=== PATIENT | female | born 1995 | race Caucasian/White ===

== ENCOUNTER 2016-05-15 09:58 | Emergency (ER) ==
[2016-05-15 10:14] LABS: URINE SOURCE CLEAN CATCH
[2016-05-15 10:45] LABS: BILIRUBIN URINE NEGATIVE (NEGATIVE); BLOOD URINE NEGATIVE (NEGATIVE); CLARITY SL. CLOUDY (CLEAR); COLOR YELLOW; GLUCOSE URINE NEGATIVE (NEGATIVE); LEUKOCYTES URINE 2+ (NEGATIVE); NITRITE URINE POSITIVE (NEGATIVE); PROTEIN URINE NEGATIVE (NEGATIVE); SP GRAVITY URINE 1.005; URINE MICROSCOPIC NEEDED? YES; UROBILINOGEN URINE NORMAL
[2016-05-15 10:46] LABS: URINE EPITHELIAL CELLS >10 /HPF (<10); URINE RBC <10 /HPF (<10); URINE WBC 20-40 /HPF (<10)
--- NOTE | 2016-05-15 10:51 | PROVIDER DOCUMENTATION ---
HPI-Female /OB/Breast - General Chief Complaint: Female Stated Complaint: POSS PREG/ABD PX Time Seen by Provider: 05/15/16 10:00 Source: reports: patient, family Allergies/Adverse Reactions: Patient Allergies Allergy/AdvReac Type Severity Reaction Status Date / Time No Known Allergies Allergy Verified 03/16/13 14:58 Home Medications: Multivitamins with Iron [Flintstones with Iron] 1 each PO HS 03/16/13 - History of Present Illness-Female /OB Nature of Presenting Problem: Presents to er with cc of abd pain x 1 week. Reports started in the upper abd and is now in lower abd. Pt reports she has had 3 positive test and reports went to [place] [facility] on Thursday and they didn't do an ultrasound. Pt reports health department on Thursday confirmed 10 weeks . Called OB told her come to ER due to steadily hurting. Denies vag bleeding,vaginal discharge,f, c,n,v. Last BM 2-3 days. . Does patient report she is ?: Yes (10 weeks) Location of complaint: reports: LLQ, suprapubic Quality of Pain: reports: aching Severity in ED: reports: moderate Onset/Duration: reports: 1 week ago Timing: reports: still present Vaginal Symptoms: reports: no symptoms Vaginal Bleeding Amount: None Related Symptoms: reports: abdominal pain Leakage of Fluid: none Similar Symptoms Previously?: No Recently seen or treated by another doctor?: Yes Review of Systems - Adult - REVIEW OF SYSTEMS - ADULT Constitutional: denies: chills, fever, fatique Eyes: reports: no symptoms reported Ears, Nose, Mouth & Throat: reports: no symptoms reported Cardiovascular: denies: chest pain, irregular heart rate, orthopnea Respiratory: reports: no symptoms reported Gastrointestinal: reports: abdominal pain. denies: diarrhea, nausea, vomiting Genitourinary: reports: no symptoms reported Musculoskeletal: reports: no symptoms reported Integumentary: reports: no symptoms reported Neurological: reports: no symptoms reported Psychiatric: reports: no symptoms reported Endocrine: reports: no symptoms reported Hematologic/Lymphatic: reports: no symptoms reported Allergic/Immunologic: reports: no symptoms reported All Other Systems: Reviewed and Negative Past History - Adult - PAST MEDICAL HISTORY-ADULT Review of Records: reports: Nursing Assessment Review Major Childhood Illnesses: reports: denies history Cardiovascular: reports: denies history - PRIOR SURGERIES/PROCEDURES Surgical/Procedure History: reports: other (2 DNC) - IMMUNIZATION STATUS Childhood Immunizations: See Nurse Assessment Flu Vaccine: See Nurse Assessment - SOCIAL HISTORY Smoking: denies Substance Use: none/never Physical Exam-General - PHYSICAL EXAM-ADULT Initial Vital Signs Reviewed: Yes - CONSTITUTIONAL General Appearance: appears well, alert, no apparent distress - EYES Eyes: PERRL/EOMI, pink conjunctivae - HEAD, EARS, NOSE, MOUTH & THROAT HENMT: normocephalic/atraumatic, moist mucous membranes, normal ENT inspection - RESPIRATORY Respiratory: chest non-tender, lungs clear, normal breath sounds, no pleuratic chest pain, no respiratory distress, no accessory muscle use - CARDIOVASCULAR Cardiovascular: normal peripheral pulses, regular rate, rhythm, no edema, no gallop, no JVD, no murmur - GASTROINTESTINAL (ABDOMEN) Abdominal Exam: normal bowel sounds, soft, no organomegaly, no pulsatile mass, tenderness (ttp luq) - LYMPHATIC Lymphatic: no adenopathy - MUSCULOSKELETAL Back Exam: normal inspection, no CVA tenderness, no vertebral tenderness Extremity: normal range of motion, non-tender, normal gait - SKIN Integumentary: normal color, normal turgor, warm/dry - NEUROLOGIC Neurologic: grossly normal, no motor/sensory deficits - PSYCHIATRIC Psych/Mental Status: normal mood/affect, normal thought content, normal thought process, oriented x 3 Progress - PLAN OF CARE/RESULTS Progress/Plan/Lab Results: Orders Category Date Time Status US OBS COMPLETE < 14 WKS [US] Stat Exams 05/15/16 10:50 Ordered TEST-URINE [PREG] Stat Lab 05/15/16 10:[address] [URINALYSIS] Stat Lab 05/15/16 10:10 Completed URINE MICROSCOPIC [URINALYSIS] Stat Lab 05/15/16 10:10 Completed Vital Signs - 24 hr 05/15/16 10:12 Temperature 97.2 F L Pulse Rate 87 Respiratory 18 Rate Blood Pressure 138/81 O2 Sat by Pulse 100 Oximetry Laboratory Tests 05/15/16 05/15/16 10:10 10:10 Urine Source CLEAN CATCH Urine Color YELLOW Urine Clarity SL. CLOUDY A Urine pH 7.0 Ur Specific [place] 1.005 Urine Protein NEGATIVE Urine Ketones NEGATIVE Urine Blood NEGATIVE Urine Nitrite POSITIVE A Urine Bilirubin NEGATIVE Urine Urobilinogen NORMAL Urine Microscopic RBC <10 Urine WBC 2+ A Urine Microscopic WBC 20-40 A Ur Epithelial Cells >10 A Urine Bacteria 4+ Urine Glucose NEGATIVE Urine Test POSITIVE - ULTRASOUND (By Radiology) 1 US Study: Pelvic Impression: Abnormal (live intrauterine of 5w6d EGA; FHR is 112- 118bpm no complications identified.) Departure - Departure Time of Disposition Order: 10:51 DIAGNOSIS: UTI (urinary tract infection) Qualifiers: Urinary tract infection type: site unspecified Hematuria presence: without hematuria Qualified Code(s): N39.0 - Urinary tract infection, site not specified Qualifiers: Weeks of gestation: less than 8 weeks Qualified Code(s): Z3A.01 - Less than 8 weeks gestation of Disposition: HOME 01 Certified Medical Emergency: Emergent Condition: Stable Additional Instructions: Follow up with OB ED Follow Up Instructions: You have been treated by a care provider in the Emergency Department. These instructions are being provided to you so you can have an understanding of how to care for yourself upon discharge. Upon discharge from the Emergency Department, you are responsible for making arrangements for follow-up care by a physician of your choice. Take all prescribed medications as directed. Return to the Emergency Department immediately for any new or worsening symptoms. You may call the Physician Referral phone number at [phone] to obtain a list of Physicians who are taking new patients. Prescriptions: Nitrofurantoin Monohyd/M-Cryst [Macrobid 100 mg Capsule] 100 mg PO BID #20 capsule Referrals: Fabio Jones MD [Primary Care Provider] - Forms: Return to School/Parent Work Instructions: Nitrofurantoin tablets or capsules, Urinary Tract Infection Attestation - Scribe Verification/Attestation Scribe:: Babar Mora Acting as Scribe for:: Pooja Sanders Scribe documention review:: This chart was documented by a scribe and accurately reflects the service the provider performed and the decisions made by the provider.
[2016-05-15 12:20] VITALS: BP 128/62
--- NOTE | 2016-05-16 10:01 | Diag Imaging Result Document ---
PROCEDURE NAME: US OBS COMPLETE < 14 WKS - 05/15/2016 OBSTETRIC ULTRASOUND, LESS THAN FOURTEEN WEEKS: INDICATION: Midabdominal pain. FINDINGS: A single viable intrauterine is identified with an estimated gestational age of 6 weeks 1 day by crown rump length. heart rate is 118 beats per minute. A normal appearing yolk sac is identified. Estimated due date is January 09, 2017. The ovaries appear normal bilaterally. There is no free fluid within the cul-de-sac. The uterus measures 11 x 4.6 x 4.6 cm. IMPRESSION: Viable IUP. Estimated gestational age 6 weeks 1 day.
== END 2016-05-15 12:20 | disposition home or self-care (01) ==
LOC: P.ED 09:58
DX: O23.41 Unspecified infection of urinary tract in pregnancy, first trimester (principal); O26.891 Other specified pregnancy related conditions, first trimester; R10.30 Lower abdominal pain, unspecified; R10.32 Left lower quadrant pain; R10.9 Unspecified abdominal pain; Z3A.01 Less than 8 weeks gestation of pregnancy
CPT/HCPCS: 76801; 81001; 81025

== ENCOUNTER 2018-08-09 00:22 | Inpatient (IN) ==
[2018-08-09 01:08] LABS: URINE SOURCE VOIDED
[2018-08-09 01:23] LABS: BILIRUBIN URINE NEGATIVE (NEGATIVE); BLOOD URINE NEGATIVE (NEGATIVE); CLARITY CLEAR (CLEAR); COLOR YELLOW; GLUCOSE URINE NEGATIVE (NEGATIVE); KETONE URINE NEGATIVE (NEGATIVE); LEUKOCYTES URINE 2+ (NEGATIVE); NITRITE URINE NEGATIVE (NEGATIVE); PROTEIN URINE NEGATIVE (NEGATIVE); UROBILINOGEN URINE NORMAL
[2018-08-09] MEDS ORDERED: STADOL IV PRN ×2 (01:42→03:12)
[2018-08-09] MEDS ORDERED: LR 1,000 ML IV SCH ×2 (01:45→03:15)
[2018-08-09] MEDS ORDERED: REGLAN PO ONE (03:12)
[2018-08-09] MEDS ORDERED: KEFZOL 1 GM/D5W 1 GM/50 ML IVPB IV PRN (03:12)
[2018-08-09] MEDS ORDERED: PEPCID PO ONE (03:12)
[2018-08-09] MEDS ORDERED: ZOFRAN IV PRN (03:12)
[2018-08-09] MEDS ORDERED: PEPCID IV PRN (03:12)
[2018-08-09] MEDS ORDERED: PEPCID PO PRN (03:12)
[2018-08-09] MEDS ORDERED: SODIUM CHLORIDE 0.9% INJ SCH (03:15)
[2018-08-09] MEDS ORDERED: NAROPIN 0.2% INJ SCH (03:15)
[2018-08-09 03:18] LABS: BASO# 0.05 X1000 (0.0-0.2); BASO% 0.3 % (0.0-0.8); EOS# 0.09 X1000 (0.0-0.7); EOS% 0.5 % (0.0-10.0); HEMATOCRIT 31.6 % (37.0-47.0); IMM GRAN# 0.28 X1000 (0.0-0.04); IMM GRAN% 1.5 % (0.0-0.5); LYMPH% 14.5 % (20.5-51.1); MCH 26.1 PG (27-31); MCHC 31.6 g/dL (33-37); MCV 82.5 FL (81-99); MONO# 1.46 X1000 (0.11-0.59); MONO% 7.9 % (1.7-9.3); MPV 12.2 FL (7.4-10.4); NEUT# 13.99 X1000 (1.4-6.5); NEUT% 75.3 % (42.2-75.2); PLT 215 X1000 (130-400); RBC 3.83 XMIL (4.2-5.4); RDW 15.5 % (11.5-14.5); WBC 18.57 X1000 (4.8-10.8)
[2018-08-09] MEDS ORDERED: XYLOCAINE-MPF 1% INJ PRN ×2 (03:55→06:56)
[2018-08-09] MEDS ORDERED: MINERAL OIL PO PRN ×2 (03:55→06:56)
[2018-08-09] MEDS ORDERED: FENTANYL-BUPIV-NS 2 MCG-0.1% 200 ML EPIDURAL SCH (04:00)
[2018-08-09 04:50] LABS: UR AMPHETAMINES QUAL NONE DETECTED (NONE DETECT); UR BARBITUATES QUAL NONE DETECTED (NONE DETECT); UR BENZODIAZEPIN QUAL NONE DETECTED (NONE DETECT); UR CANNABINOIDS QUAL NONE DETECTED (NONE DETECT); UR COCAINE QUAL NONE DETECTED (NONE DETECT); UR METHADONE QUAL NONE DETECTED (NONE DETECT); UR METHAMPHETAMINE QUAL NONE DETECTED (NONE DETECT); UR OPIATES QUAL NONE DETECTED (NONE DETECT); UR OXYCODONE QUAL NONE DETECTED (NONE DETECT); UR PCP QUAL NONE DETECTED (NONE DETECT); UR PROPOXYPHENE QUAL NONE DETECTED (NONE DETECT); UR TCA QUAL NONE DETECTED (NONE DETECT)
[2018-08-09] MEDS: PITOCIN 30 UNITS/NS 30 UNIT/500 ML IV.SOLN IV SCH ×2 (05:30→06:43)
--- NOTE | 2018-08-09 06:43 | HISTORY AND PHYSICAL ---
HISTORY OF PRESENT ILLNESS: Ms. Ornelas is a 23-year-old, G 6, P 4, 0-1-4, with an intrauterine at 39 weeks and 4 days with a due date of 08/12/2018, who came in with complaints of contractions. The patient reports that she has a doctor's appointment tomorrow and she thinks they were planning to induce her and put her in for induction tomorrow. The patient reports some leaking. No nausea, no vomiting, no fever, no diarrhea, and no chills. The patient has had care for most of the . MEDICAL HISTORY: Significant for anxiety, history of blood transfusion. The patient had two D and C's, one in 2012 and one in 2013. FAMILY HISTORY: Relevant for hypertension and diabetes. GYNECOLOGIC HISTORY: Significant for two D and C's. ALLERGIES: No known drug allergies. MEDICATIONS: vitamins LABS: OB labs have been reviewed. The patient is O positive. Antibody negative. Pap test was normal. Rubella was immune. VDRL was nonreactive. HBsAg nonreactive. HIV negative. GC and Chlamydia were negative. Quad screen was negative. PHYSICAL EXAM: VITAL SIGNS: Stable. Temperature of 97.7 degrees, respiratory rate 18, blood pressure 120/70, and pulse rate is 98. GENERAL: The patient is alert, awake, oriented x3, and in moderate distress with contractions. HEENT: Normocephalic, atraumatic. CV: S1, S2 are normal. LUNGS: Clear. ABDOMEN: The patient has a gravid uterus. Positive bowel sounds. EXTREMITIES: No edema is noted. OBSTETRICAL: On cervical exam, on arrival the patient was 4 cm. She has progressed to 7 cm since arrival. heart rate is reactive. Regular pattern of contractions. ASSESSMENT AND PLAN: Intrauterine at 39 and 4/7 weeks, grand multiparity. Admit to Labor and delivery for vaginal delivery. The patient is GBS negative. She desires an epidural, and the patient may have an epidural. Pitocin for augmentation if necessary. Expect vaginal delivery. cc: Kay Olguin MD
[2018-08-09] MEDS ORDERED: PITOCIN IM PRN (06:56)
[2018-08-09] MEDS ORDERED: CYTOTEC PO PRN (06:56)
[2018-08-09] MEDS ORDERED: HYDROXYZINE IM PRN (06:56)
[2018-08-09] MEDS ORDERED: PERI MEDS (DERMOPLAST/NUPERCAINAL/TUCKS) MISC PRN (06:56)
[2018-08-09] MEDS ORDERED: BENADRYL PO PRN (06:56)
[2018-08-09] MEDS ORDERED: BENADRYL IV PRN (06:56)
[2018-08-09] MEDS ORDERED: AMBIEN PO PRN (06:56)
[2018-08-09] MEDS ORDERED: PERCOCET-5 PO PRN (06:56)
[2018-08-09] MEDS ORDERED: ATARAX PO PRN (06:56)
[2018-08-09] MEDS ORDERED: M-M-R II VACCINE SUBQ ONE (06:56)
[2018-08-09] MEDS ORDERED: BOOSTRIX VACCINE IM ONE (06:56)
--- NOTE | 2018-08-09 06:56 | OB/GYN PROGRESS NOTE ---
Progress Note OB - . OB Progress Note: Vital Signs - 24 hr 08/09/18 00:53 Temperature 97.7 F Pulse Rate 98 H Respiratory Rate 18 Blood Pressure 120/70 O2 Sat by Pulse Oximetry 97 Laboratory Results - last 24 hr 08/09/18 08/09/18 08/09/18 00:30 00:30 01:00 WBC RBC Hgb Hct MCV MCH MCHC RDW Std Deviation Plt Count MPV Immature Gran % (Auto) Neut % (Auto) Lymph % (Auto) [place] % (Auto) Eos % (Auto) Baso % (Auto) Immature Gran # (Auto) Neut # (Auto) Lymph # (Auto) [place] # (Auto) Eos # (Auto) Baso # (Auto) Urine Source VOIDED Urine Color YELLOW Urine Clarity CLEAR Urine pH 7.0 Ur Specific [place] 1.010 Urine Protein NEGATIVE Urine Ketones NEGATIVE Urine Blood NEGATIVE Urine Nitrite NEGATIVE Urine Bilirubin NEGATIVE Urine Urobilinogen NORMAL Urine WBC 2+ A Urine Glucose NEGATIVE Membranes Rupture NEGATIVE Urine Opiates Screen NONE DETECTED Ur Oxycodone Screen NONE DETECTED Urine Methadone Screen NONE DETECTED U Propoxyphene Qual NONE DETECTED Ur Barbituates Screen NONE DETECTED Ur Tricyclics Screen NONE DETECTED Ur Phencyclidine Scrn NONE DETECTED Ur Amphetamines Screen NONE DETECTED U Methamphetamines Scrn NONE DETECTED U Benzodiazepines Scrn NONE DETECTED Urine Cocaine Screen NONE DETECTED U Cannabinoids Screen NONE DETECTED RPR 08/09/18 08/09/18 02:00 02:00 WBC 18.57 H RBC 3.83 L Hgb 10.0 L Hct 31.6 L MCV 82.5 MCH 26.1 L MCHC 31.6 L RDW Std Deviation 15.5 H Plt Count 215 MPV 12.2 H Immature Gran % (Auto) 1.5 H Neut % (Auto) 75.3 H Lymph % (Auto) 14.5 L [place] % (Auto) 7.9 Eos % (Auto) 0.5 Baso % (Auto) 0.3 Immature Gran # (Auto) 0.28 H Neut # (Auto) 13.99 H Lymph # (Auto) 2.70 [place] # (Auto) 1.46 H Eos # (Auto) 0.09 Baso # (Auto) 0.05 Urine Source Urine Color Urine Clarity Urine pH Ur Specific [place] Urine Protein Urine Ketones Urine Blood Urine Nitrite Urine Bilirubin Urine Urobilinogen Urine WBC Urine Glucose Membranes Rupture Urine Opiates Screen Ur Oxycodone Screen Urine Methadone Screen U Propoxyphene Qual Ur Barbituates Screen Ur Tricyclics Screen Ur Phencyclidine Scrn Ur Amphetamines Screen U Methamphetamines Scrn U Benzodiazepines Scrn Urine Cocaine Screen U Cannabinoids Screen RPR NON-REACTIVE DELIVERY NOTE of LVFI weighing 7lbs 4 ounces with apgars of 9 and 10 at 1 and 5 minutes respectively over intact perineum at 6:35 am . No nuchal cord, no lacerations. Placenta intact. EBL 150cc. patient tolerated procedure well. to nursery
[2018-08-09] MEDS ORDERED: PITOCIN 30 UNITS/NS 30 UNIT/500 ML IV.SOLN IV SCH (07:00)
[2018-08-09] MEDS ORDERED: PITOCIN 20 UNITS/NS 20 UNITS/1,000 ML IV.SOLN IV SCH (07:00)
[2018-08-09] MEDS: MOTRIN PO PRN ×2 (08:30→16:30)
--- NOTE | 2018-08-09 09:58 | OPERATIVE NOTE ---
PROCEDURE DATE: 08/09/2018 DELIVERY NOTE: Normal spontaneous vaginal delivery of a live viable female infant, weighing 7 pounds 4 ounces with of 9 and 10 at 1 and 5 minutes respectively over an intact perineum. Delivery time was 6:45 a.m. No nuchal cord. No lacerations of the vagina or cervix. Placenta delivered intact. Estimated blood loss 150 mL. Fundus firm. Pitocin being given IV. The patient tolerated the procedure well. The went to the nursery. cc: Kay Olguin MD
[2018-08-09] MEDS: TYLENOL PO PRN ×2 (15:49→21:51)
[2018-08-09] MEDS: PERICOLACE PO SCH (20:07)
[2018-08-10] MEDS: MOTRIN PO PRN ×3 (00:01→18:12)
[2018-08-10 07:28] LABS: BASO# 0.03 X1000 (0.0-0.2); BASO% 0.2 % (0.0-0.8); EOS# 0.15 X1000 (0.0-0.7); EOS% 1.2 % (0.0-10.0); HEMATOCRIT 29.3 % (37.0-47.0); HEMOGLOBIN 8.8 g/dL (12.0-16.0); IMM GRAN# 0.13 X1000 (0.0-0.04); LYMPH# 2.05 X1000 (1.2-3.4); MCH 25.3 PG (27-31); MCV 84.2 FL (81-99); MONO# 1.02 X1000 (0.11-0.59); MPV 12.3 FL (7.4-10.4); NEUT# 9.45 X1000 (1.4-6.5); NEUT% 73.6 % (42.2-75.2); PLT 167 X1000 (130-400); RBC 3.48 XMIL (4.2-5.4); RDW 15.7 % (11.5-14.5); WBC 12.83 X1000 (4.8-10.8)
[2018-08-10] MEDS: FERROUS SULFATE PO SCH ×2 (08:51→20:26)
--- NOTE | 2018-08-10 09:30 | PROGRESS NOTE ---
DATE: 08/10/2018 HPI: Ms Ornelas is a 23-year-old G6, P5 0-1-5, who is day 1 status post a spontaneous vaginal delivery at 39 weeks and 4 days of a 7 pounds 4 ounces female with the Apgars of 9 and 10.. EBL 150 mL. SUBJECTIVE: This morning Ms. Ornelas has no complaints. She has been taking ibuprofen which has been helping with her abdominal cramping. She states that her left lower quadrant pain is still present intermittently. The last time she was seen in OB triage with this pain. She states that when she went home and had a bowel movement, it did improve. She also states that pressing against the area of the pain also seems to alleviate it. She is tolerating her p.o. diet without nausea or vomiting. Ambulating without difficulty, and urinating without difficulty. She has not yet had a bowel movement, but she does not feel like she needs to have one. She denies any complaints of fever, chills, headache, or leg pain. She is bottle feeding her . She desires to have a tubal ligation and will follow up outpatient for this. OBJECTIVE: Vital signs: Temperature 98.2 degrees, pulse rate 89, respiratory rate 18, blood pressure 133/65, O2 saturation is 98% on room air. General: No acute distress sitting up in bed eating, alert and cooperative. HEENT: Atraumatic and normocephalic. Heart: Regular rate and rhythm. No murmurs, rubs, gallops or clicks. Lungs: Clear to auscultation bilaterally with no adventitious breath sounds. Abdomen: Obese. abdomen. Normoactive bowel sounds. Fundal height is nontender and at the umbilicus. Extremities: Trace edema. No cyanosis noted. No pain of the calves. No tenderness noted bilaterally and negative Homans sign. LABORATORY: CBC, WBC 12.8, hemoglobin 8.8, hematocrit 29.3, and platelet count 167,000. ASSESSMENT: Ms. Ornelas is a 23-year-old G6, P5, 0-1-5, who is day 1 status post a normal spontaneous vaginal delivery now with asymptomatic anemia secondary to acute blood loss, intermittent LLQ pain PLAN: 1. Routine care. -Continue pain management with ibuprofen. - Bottle-feeding. -Desires tubal ligation for contraception. 2. Asymptomatic anemia. -Initiate iron b.i.d. 325 mg. -Patient has Senna and Colace for constipation prophylaxis. 3. Intermittent LLQ pain - Patient to f/u in one week with primary OB - Again educated regarding sxs of incarcerated hernia cc: MD Kay Goddard MD MTDD
[2018-08-10] MEDS: PERICOLACE PO SCH (20:26)
[2018-08-11] MEDS: MOTRIN PO PRN ×2 (01:54→10:07)
[2018-08-11 07:51] VITALS: BP 127/70
[2018-08-11] MEDS: FERROUS SULFATE PO SCH (10:07)
[2018-08-11] MEDS: TYLENOL PO PRN (12:23)
--- NOTE | 2018-08-12 04:58 | DISCHARGE SUMMARY ---
ADMISSION DATE: 08/09/2018 DISCHARGE DATE: 08/11/2018 ADMISSION DIAGNOSIS: Intrauterine at 39 and 4/7 weeks in early active labor. FINAL DIAGNOSIS: Intrauterine at 39 and 4/7 weeks in early active labor, with spontaneous vaginal delivery of a female 7 pounds, 4 ounces, with Apgars of 9 and 10, at 0635 on 08/09/2018. PROCEDURES: Spontaneous vaginal delivery. BRIEF HISTORY: Patient is a 23-year-old white female, G6, P4, A1, who is at 39 and 4/7 weeks, presents with complaints of uterine contractions. PAST MEDICAL HISTORY: Significant for anxiety as well as a history of blood transfusion. She had previous D and C x2 in 2012 and 2013. FAMILY HISTORY: Significant for hypertension and diabetes. 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 ALLERGIES: No known drug allergies. MEDICATIONS: vitamins. LABORATORY DATA: The patient's blood type was noted to be O positive. Rubella was immune. PHYSICAL EXAM: Her cervix was noted to be 4 cm dilated, and then she progressed to 7 once she was rechecked. ASSESSMENT AND PLAN: Intrauterine at 39 and 4/7 weeks grand multiparas. Patient will be admitted. Plan for vaginal delivery. Patient's group B strep status is negative. HOSPITAL COURSE: The patient had a spontaneous vaginal delivery of a female infant 7 pounds, 4 ounces, with Apgars of 9 and 10 at 0635 on 08/11/2018, and no lacerations. The patient's hemoglobin was low at 8.8 and hematocrit of 29.3, but she was doing well without heavy bleeding and eating and ambulating with stable vital signs and was afebrile. On day 2 it was felt she could be discharged home. DISCHARGE INSTRUCTIONS: Patient will be discharged home. She will follow up in [address] Mead. She was given instructions on pelvic rest for the next 6 weeks. She is considering having tubal ligation for control. DISCHARGE MEDICATIONS: 1. Severance 5 dispensed 20 with no refills. 2. Colace 100 mg dispensed 30 with 1 refill. 3. Motrin 800 mg, dispensed 30 with 1 refill. 4. Iron sulfate dispensed 30 with 1 refill. cc: MD Kay Saba III, MD
== END 2018-08-11 14:40 | disposition home or self-care (01) | DRG 812 ==
LOC: P.OPLD 00:22 → P.LD 00:24
PROVIDERS: ADMIT Obstetrics & Gynecology; ATTEND Obstetrics & Gynecology
CPT/HCPCS: 36415; 59025; 80104; 80301; 80305; 81003; 84112; 85025; 86592; A9270; G0431; G0434; G0477; J0595; J2405; J2590; J2795; J7120; S0028